=== PATIENT | female | born 1965 | race Caucasian/White ===

== ENCOUNTER 2019-10-25 10:23 | Observation (INO) | payer OTHER, BC, SELFPAY ==
[2019-10-25] VITALS (8 sets, daily range): BP systolic 143–170; BP diastolic 72–98; PULSE 75–105; RESP 17–20; TEMP 36.6–37.1; O2SAT 96–100
--- NOTE | 2019-10-25 10:35 | W.ED.GENAD ---
Discharge Plan Disposition Condition: Improving Discharge Details Chief Complaint: Trauma Admit Date/Time: 10/25/19 15:58 Admit Provider: Leodan Mao Attending Provider: Leodan Mao Primary Care Provider: Unknown,Unknown ED Provider: Loli Carlos Discharge Instructions Activity:: Activity as Tolerated Equipment/Supplies:: Walker Diet:: As Tolerated Discharge Orders Discharge Orders: Discharge Order (Routine); Ordered 10/27/19 Ordered By: Unique Alcazar Discharge Data Discharge Date/Time-TO BE ENTERED AT DEPARTURE: 10/25/19 16:37 Medical Decision Making Patient is a pleasant 54-year-old female presents today with chief complaint of back pain. She reports a prior to arrival, she slipped down some steps and landed directly onto her back striking her lumbar and thoracic spines going down approximately 4 steps. She denies striking her head, no loss of conscious. Denies any altered sensation. Has not noted any weakness but is having difficulty moving secondary to the severe pain in her back. Patient is anticoagulated on Xarelto she has history of DVTs and antiphospholipid antibody syndrome. Denies any pain in her extremities. No pain in the neck. On exam, patient appears very uncomfortable. Normal head and neck exam. Neurologic exam is intact. She is exquisitely tender over T6 of the thoracic spine. Also has had more mild discomfort diffusely over the lumbar spine. No pelvic instability or discomfort. No saddle paresthesias. Not have any incontinence. Plan to treat the patient's pain and obtain CT. As the patient is anticoagulated, I feel that chest, abdomen imaging is appropriate as well despite her normal exams. Lungs were clear no tenderness elicited with palpation over the abdomen. Contacted by radiologist. He is concerned about a number of low attenuation areas in the lumbar spine consistent with early myeloma. He is advising MRI of the spine. He does see what appears to be a anterior compression fracture at T7 but states that this is minimal, could account for her acute pain today. Also notes a large uterus with calcification consistent with calcified fibroids as well as concern for cervical mass. Patient was unaware of any of these findings. She reports that she is overdue for any Pap smear. States that she has not been noted to have an abnormality historically when undergoing an exploratory laparotomy for her of bowel obstruction. However, she underwent a subsequent ultrasound with fibroids noted otherwise without acute abnormality. I discussed treatment options with her. As the patient does live in [place], I am concerned regarding her pain management on the drive home do not feel that she can be able to tolerate this today. Patient will be given 4 mg of morphine in addition to the 100 mcg of fentanyl she is already received. We will also give oral acetaminophen. Patient is unable to take anti-inflammatories secondary to her anticoagulated state. Consulted with Dr. Palomo regarding the patients compression fracture. He recommended PCP f/u and pain management. Consulted with radiologist regarding the findings of the patient's MRI. He advised that the suspicious lesions are most consistent with small hemangiomas and not suggestive myeloma. Discussed findings with the patient. Patient continues to require IV narcotics for pain. She does live in [place] and only to be able to tolerate a car ride home and time of discharge. At this time, I do not believe the patient is able to tolerate this, she is still unable to perform minimal movements to even out of bed. Will discuss with the hospitalist. Consulted with the hospitalist who agrees to admission for pain control following traumatic fracture of T7. HPI General Mode of arrival: wheelchair. Date/Time Provider Initiated Documentation: 10/25/19 10:35. Limitations to Documentation: no limitations. Information obtained by: patient, family () and RN notes reviewed. HPI Narrative: Patient is a pleasant 54-year-old female presenting today with chief complaint of back pain. She reports a prior to arrival she was at a condo where she and friends are staying skiing, when she slipped down some of the stairs in a rate of the bathroom. Reports that she fell down approximately 4 stairs but landed directly on her mid back and since that time is been having severe pain. Patient had extreme difficulty getting out of the car and performing small activities since the time of the fall secondary to the severe pain. Past medical history pertinent for clotting disorder, patient is anticoagulated on Xarelto. She also has had multiple histories of bowel obstructions. Denies any bowel changes today. Patient denies striking her head, no loss of consciousness. Denies any fevers or chills. Denies any neck pain. Denies any pain in her limbs. Related Data Home Medications Medication Instructions Recorded Confirmed [id number] 1 cap PO DAILY 10/25/19 10/25/19 Xarelto 20 mg PO DAILY 10/25/19 10/25/19 cholecalciferol (vitamin D3) 2,000 unit PO DAILY 10/25/19 10/25/19 [Vitamin D3] magnesium 250 mg PO DAILY 10/25/19 10/25/19 acetaminophen [Mapap Extra 1,000 mg PO Q8H #0 tab 10/27/19 Strength] docusate sodium [Colace] 100 mg PO TID PRN PRN #0 cap 10/27/19 lidocaine [Lidoderm] 1 patch TOPICAL Q24H #15 each 10/27/19 oxycodone 10 mg PO Q6H PRN PRN #16 tab 10/27/19 Previous Rx's Medication Instructions Recorded acetaminophen [Mapap Extra 1,000 mg PO Q8H #0 tab 10/27/19 Strength] docusate sodium [Colace] 100 mg PO TID PRN PRN #0 cap 10/27/19 lidocaine [Lidoderm] 1 patch TOPICAL Q24H #15 each 10/27/19 oxycodone 10 mg PO Q6H PRN PRN #16 tab 10/27/19 Allergies Allergy/AdvReac Type Severity Reaction Status Date / Time adhesive tape AdvReac Unverified 10/25/19 10:51 General Stated Complaint: Trauma SOCORRO: 3 Review of Systems Constitutional Constitutional: Reports as per HPI, Denies chills, Denies fatigue, Denies fever(s), Denies headache(s) and Denies weakness Eyes Eyes: Reports as per HPI, Denies blurry vision, Denies change in vision and Denies loss of vision ENT Ears, Nose, Mouth, and Throat: Denies abnormal hearing and Denies headache(s) Cardiovascular Cardiovascular: Reports as per HPI, Denies chest pain and Denies dyspnea Respiratory Respiratory: Reports as per HPI, Denies cough, Denies pain on inspiration, Denies pain with cough and Denies dyspnea Gastrointestinal Gastrointestinal: Reports as per HPI, Denies abdominal pain, Denies nausea and Denies vomiting Genitourinary Genitourinary: Reports as per HPI and Denies urinary incontinence Musculoskeletal Musculoskeletal: Reports as per HPI, Reports abnormal gait (has had difficulty moving) and Reports back pain Integumentary/Breasts Skin/Breast: Reports as per HPI and Denies rash Neurologic Neurologic: Reports as per HPI, Denies abnormal hearing, Denies abnormal movements, Denies abnormal speech, Reports abnormal gait (has had difficulty moving), Denies headache(s), Denies lack of coordination, Denies focal weakness, Denies loss of vision, Denies seizure-like activity, Denies paresthesias and Denies weakness Endocrine Endocrine: Denies fatigue [facility] Medical History Antiphospholipid antibody syndrome (Chronic) History of DVT (deep vein thrombosis) (Resolved) Small bowel obstruction due to adhesions (Resolved) Uterine fibroid (Acute) Surgical History H/O section (Chronic) Social History Smoking/Tobacco Use Status: Former Tobacco Use Alcohol Intake: current Alcohol Intake frequency: holidays/special occasions only Drug use: Never Substance use type: does not use Do you feel safe at home: Yes Do you feel safe in your relationship?: Yes Exam Const General: cooperative, healthy appearing, comfortable, no acute distress, well developed and well groomed Nutritional Appearance: average body habitus and well nourished Orientation: alert, awake and oriented x3 HENMT Head: normal to inspection, no palpable skull fracture, normocephalic and atraumatic Ears: hearing grossly normal bilaterally, external ears normal and TM's normal bilaterally General nose exam: external nose normal Mouth: oral mucosae normal, lip normal and tongue normal Throat: posterior oropharynx normal Eyes General: appearance normal, both eyes and all related structures Visual Perea: normal visual perea by confrontation Alignment and Position: alignment normal Periorbital: periorbital findings normal Eyelids: eyelids normal Conjunctivae: conjunctivae normal Pupils: PERRL EOM: EOM intact bilaterally Neck Neck: normal visual inspection, full ROM, no lymphadenopathy, no meningeal signs, trachea midline and supple Chest Chest: normal inspection of the chest, normal palpation of entire chest wall, no crepitus and no localized rib tenderness Resp Effort & Inspection: normal respiratory effort, able to speak in complete sentences and no respiratory distress Auscultation: clear to auscultation bilaterally, no rales, no rhonchi and no wheezes Cardio Rate: regular rate Rhythm: regular rhythm Heart Sounds: S1 normal and S2 normal GI Inspection: normal to inspection, no abdominal wall ecchymosis, no edema and non-distended Palpation: soft, no hepatosplenomegaly, not firm, no guarding, no pulsatile masses, not rigid and nontender Auscultation: normal bowel sounds Back/Spine/Pelvis Back: no CVA tenderness Cervical Spine: normal cervical lordosis and cervical ROM normal Thoracic/Lumbar Spine: thoracic and lumbar spine normal to inspection, thoraco-lumbar ROM normal, thoraco-lumbar ROM limited, No thoraco-lumbar spasm, thoracic spinal tenderness (Pain at T6) and lumbar spinal tenderness (no focal tenderness) Pelvis: no pain with anterior-posterior compression and no pain with lateral compression Sacroiliac joints: bilaterally nontender Sacrum: no ecchymosis and no tenderness Skin General skin exam: no rashes or lesions noted Lesions: no lesions Rashes: no rashes Trauma: no lacerations or abrasions Wounds: no wounds Neuro General: alert, awake, oriented x3, gait normal, tone normal and moves all extremities Cranial Nerves: CN's II-XI intact bilaterally Cognition: normal cognition Speech: speech normal Gait: gait abnormal (patient is having severe pain, has very minimal movement) Motor: muscle tone normal throughout and strength 5/5 throughout Sensory Exam: no sensory deficits noted (no saddle paresthesias) Extrem General: normal to inspection, full ROM, normal capillary refill, no pedal edema and no calf tenderness Psych Appearance: grossly normal and well kempt Mental Status: mental status grossly normal Speech and Movement: speech and movement normal Course Vital Signs Vital signs: Vital Signs Temperature 36.6 C 10/25/19 10:30 Pulse 89 10/25/19 10:30 Respiratory Rate 20 10/25/19 10:30 Blood Pressure 170/98 H 10/25/19 10:30 Pulse Oximetry 100 10/25/19 10:30 Temperature 36.6 C 10/25/19 10:30 Temperature Source Temporal Artery Scan 10/25/19 10:30 Pulse 89 10/25/19 10:30 Respiratory Rate 20 10/25/19 10:30 Blood Pressure 170/98 H 10/25/19 10:30 Blood Pressure Position Sitting 10/25/19 10:30 Pulse Oximetry 100 10/25/19 10:30 Oxygen Delivery Method Room Air 10/25/19 10:30 Oxygen Flow Rate 0 10/25/19 10:30 Pain Level 10 10/25/19 10:30
[2019-10-25] MEDS: fentaNYL 100 MCG/2 ML VIAL 50 MCG IVP ×2 (10:49→11:01)
[2019-10-25] MEDS: Normal Saline Flush 10 ML SYR IVP (10:51)
--- NOTE | 2019-10-25 11:12 | DI.CT_ITS ---
EXAM: CT CHEST/ABD/PEL W AND CT THORACIC AND LUMBAR RECONS CLINICAL HISTORY: fall, anticoagulated TECHNIQUE: CT examination of the chest, abdomen and pelvis was performed with a bolus infusion of 10 0 cc of Omnipaque 350. Thoracic and lumbar spine reconstructions were obtained from the raw data set. COMPARISON: No exams were available for comparison FINDINGS: There is minimal anterior vertebral body compression fracture and superior endplate fracture of T7. No involvement of the posterior elements. This reportedly corresponds to the patient's area of sympt omatology. Note is also made of questionable poorly defined areas of decreased attenuation in multiple lumbar ve rtebral bodies, no definite lytic lesion seen but possibility of early lytic lesions is not excluded and correlation with MR of the lumbar and thoracic spine is suggested including post contrast imaging to rule out multifocal process such as multiple myeloma. The lungs are clear. The thoracic aorta and major branches appear intact. No evidence of pulmonary embolic disease. No mediastinal or hilar adenopathy. Tracheobronchial tree appears intact. No pleu ral effusion or pneumothorax. No soft tissue hematoma. Liver, spleen and pancreas appear normal. Gallbladder and bile ducts are CT normal. Adrenals and ki dneys appear normal. Abdominal aorta and major branches appear normal. No intra-abdominal hematoma or free air. Small fa t containing umbilical hernia noted. No abdominal or pelvic adenopathy. Appendix is normal. No evidence of bowel injury, diverticulitis or bowel obstruction. Uterus appear s mildly enlarged with some myometrial calcifications and heterogeneous appearance of the uterus cons istent with multiple fibroids. No gross adnexal mass. There is prominence of the endometrial stripe which is abnormal in this age group, question cervical enlargement noted as well. Pelvic ultrasound requested for correlation to evaluate the cervix to exc lude cervical mass lesion and to evaluate the endometrial stripe. IMPRESSION: Mild anterior T7 vertebral body/superior endplate fracture. Questionable areas of decreased attenuation particularly in lumbar spine raising the possibility of l ytic lesions. Thoracic and lumbar spine MRI including post contrast imaging suggested to rule out mu ltifocal disease including multiple myeloma. Probable endometrial stripe thickening in a postmenopausal patient. Presumed uterine fibroids, cervi elkin enlargement noted. Pelvic ultrasound suggested for correlation.
[2019-10-25 11:15] LABS: Abs Immature Grans 0.02 k/cumm (0.0-0.09); Absolute Basophil Count 0.02 k/cumm (0.0-0.2); Absolute Eosinophil Count 0.05 k/cumm (0.0-0.7); Absolute Lymphocyte Count 0.63 k/cumm (1.2-3.4); Absolute Neutrophil Count 4.76 k/cumm (1.2-6.7); Basophils % 0.3; Eosinophils % 0.9; HCT 39.3 % (36.0-46.0); HGB 13.9 g/dL (12.0-15.5); Immature Grans % 0.3; Lymphocytes % 10.7; Mean Corp. HGB Concentration 35.4 g/dL (32.0-36.0); Mean Corpuscular Hemoglobin 32.5 pg (27.0-33.0); Mean Corpuscular Volume 91.8 fL (80-95); Mean Platelet Volume 8.4 fL (8.0-11.0); Monocytes % 6.8; Platelet Count 201 x1000/uL (130-400); RBC 4.28 m/cumm (4.00-5.20); RBC Distribution Width 11.9 % (11.7-14.6); White Blood Cell Count 5.88 k/cumm (4.4-10.8)
[2019-10-25 11:27] LABS: INR 1.2 (0.9-1.1); PTT Activated 40.5 sec (21.0-31.4); Prothrombin Time 11.9 sec (9.3-11.0)
[2019-10-25] MEDS: Omnipaque 350 MG/ML 100 ML BTL IJ (11:30)
[2019-10-25 11:35] LABS: ALT 71 U/L (14-59); AST 51 U/L (15-37); Albumin 4.2 g/dL (3.4-5.0); Alkaline Phosphatase 82 U/L (46-116); Anion Gap 16.3 mmol/L (3-11); BUN 10 mg/dL (7-18); Bilirubin, Total 0.8 mg/dL (0.2-1.0); CO2 21.7 mmol/L (21.0-32.0); CREATININE 0.59 mg/dL (0.55-1.02); Calcium 9.4 mg/dL (8.5-10.1); Chloride 99 mmol/L (98-107); Glucose 109 mg/dL (74-106); Sodium 137 mmol/L (136-145)
[2019-10-25] MEDS: Acetaminophen 500 MG TAB 1000 MG PO ×2 (12:16→19:28)
[2019-10-25] MEDS: LORazepam 2 MG/ML VIAL 1 MG IVP (13:00)
--- NOTE | 2019-10-25 13:20 | DI.MRI_ITS ---
EXAM: MR THORACIC SPINE WO/W CLINICAL HISTORY: concern for lytic lesions. TECHNIQUE: Multiplanar multisequence MRI was performed. COMPARISON: MR LUMBAR SPINE WO/W from 10/25/2019 FINDINGS: MR examination of thoracic spine was performed utilizing multiplanar imaging including pre and post c ontrast T1 fat sat imaging. Spinal cord shows normal signal. No bony spinal canal abnormality. Sean ral foramina appear intact as visualized. Mildly increased signal noted on stir images of the superi or endplate of T7 vertebral body consistent with the minimal acute compression fracture identified by CT. No associated cord injury. No additional fracture seen. No enhancing lesion. No space-occupy ing lesion and nothing to suggest the presence of multiple myeloma. Impressions section superior end plate compression fracture of T7. No additional findings. No marrow lesion identified. Scanning of the lumbar spine was performed according to the usual protocol with additional post contr ast T1 weighted fat sat imaging. There are multiple small high-signal foci seen on precontrast T1 an d T2 weighted images consistent with multiple vertebral fatty rests or hemangiomas. Minimal Alva dis elkin signal changes seen at its anterior superior endplate of L3 with minimal enhancement, the finding s are also associated with mildly abnormal signal of inferior anterior endplate of L2 and the finding s are consistent with disc degeneration. No other enhancing lesion identified in the lumbar region. No bony central canal spinal stenosis, neural foraminal stenosis, or disc herniation. Neural forami na appear well maintained throughout. Normal appearance of the conus medullaris. IMPRESSION: Minimal superior endplate/anterior compression of L7 vertebral body No other significant findings in the thoracic spine Multiple small fatty rests and/or vertebral hemangiomas of the lumbar spine which probably correspond with multiple areas of low attenuation seen on CT. No specific evidence of multiple myeloma or othe r space-occupying lesion. Findings consistent with disc degeneration with endplate changes at L2-3. No lumbar disc herniation, central canal spinal stenosis, or neural foraminal stenosis.
--- NOTE | 2019-10-25 14:10 | NUR.NOTE ---
Pt to MRI at 1305 Nursing Note:
[2019-10-25] MEDS: Gadoterate meglumine 20 ML VIAL 10 ML IVP (14:24)
--- NOTE | 2019-10-25 15:10 | NUR.NOTE ---
Pt returned from MRI, vital signs updated, see flow sheet, pt requests pain meds, advised. Nursing Note:
[2019-10-25] MEDS: oxyCODONE 5 MG TAB PO (15:33)
--- NOTE | 2019-10-25 16:06 | HPE_ITS ---
Date of service: 10/25/19 Time of Service: 16:36 Assessment and Plan Assessment and plan (1) Compression fracture of T7 vertebra: Status: Acute Assessment and plan: Noted on CT and MRI. Continue pain control with scheduled APAP, PRN IV morphine and oral oxycodone, as well as heat and muscle relaxer as needed. PT consulted. (2) Antiphospholipid antibody syndrome: Status: Chronic Assessment and plan: Continue Xarelto. She is followed by hematology at [facility], follow up as scheduled. (3) Uterine fibroid: Status: Acute Assessment and plan: Noted on CT, as well as probable endometrial stripe thickening in a postmenopausal patient and cervical enlargement. She will need follow up pelvic ultrasound and [facility] as an outpatient. (4) Vertebral body hemangioma: Status: Acute Assessment and plan: Noted on MRI, with initial concern for lytic lesions on CT scan, however, MRI most consistent with Multiple small fatty rests and/or vertebral hemangiomas of the lumbar spine, No specific evidence of multiple myeloma or other space-occupying lesion. (5) DVT prophylaxis: Status: Acute Assessment and plan: Continue Xarelto. TEDs and SCDs for mechanical DVT ppx. (6) Discharge planning issues: Status: Acute Assessment and plan: She is a full code. Continue pain control and PT consult. For discharge when her pain is under control. PT consulted. She will need follow up with [facility] in [place]. This case was discussed with Dr. Mao who is in agreement. History of Present Illness History of Present Illness Chief Complaint: Back pain Narrative: Nakia Anton is a 54 year old female with a past medical history significant for DVTs and antiphospholipid antibody syndrome for which she is on Xarelto, also w ith a history of 3 c-sections and subsequent bowel obstructions related to adhesions, who presented to the ED today after sustaining a mechanical fall down the stairs. She has been staying at [facility] with friends for a ski trip. She reports that she was in her usual state of health prior to the fall and did not experience any dizziness, lightheadedness or palpitations prior. In the ED, a CT chest/abd/pelvis was notable for a mild anterior T7 fracture. Also with concern for lytic lesions of lumbar spine, MRI was recommended. CT also notable for probable endometrial stripe thickening, presumed uterine fibroids, cervical enlargement noted, Pelvic ultrasound recommended. She went on to have MRI thoracic and lumbar spine which again noted T7 compression fracture, previously noted areas of low attenuation on CT were most consistent with vertebral hemangiomas. She was given IV morphine and PO oxycodone and admitted for pain control. At the time of her admission, she reports that the pain is tolerable if she does not move. The pain is severe with any activity. She denies any other concerns such as shortness of breath, coughing, wheezing, chest pain/pressure, palpitations, nausea or vomiting. She denies any recent change to her bowels, her bladder is functioning normally. She is interested in getting her pain under control so she can get back to [place] where she lives. Review of Systems All systems reviewed & are unremarkable except as noted in HPI and below PFS Medical History (Updated 10/25/19 @ 17:10 by Unique Alcazar NP) Antiphospholipid antibody syndrome (Chronic) History of DVT (deep vein thrombosis) (Resolved) Small bowel obstruction due to adhesions (Resolved) Uterine fibroid (Acute) Surgical History (Updated 10/25/19 @ 17:01 by Unique Alcazar NP) H/O section (Chronic) Social History Smoking/Tobacco Use Status: Former Tobacco Use Alcohol Intake: current Alcohol Intake frequency: holidays/special occasions only Drug use: Never Substance use type: does not use Do you feel safe at home: Yes Do you feel safe in your relationship?: Yes Meds Home Medications and Allergies Home Medications Medication Instructions Recorded Confirmed Type [id number] 1 cap PO DAILY 10/25/19 10/25/19 History cholecalciferol (vitamin D3) 2,000 unit PO DAILY 10/25/19 10/25/19 History [Vitamin D3] magnesium 250 mg PO DAILY 10/25/19 10/25/19 History rivaroxaban [Xarelto] 20 mg PO DAILY 10/25/19 10/25/19 History Allergies Allergy/AdvReac Type Severity Reaction Status Date / Time adhesive tape AdvReac Unverified 10/25/19 10:51 Exam Narrative Exam Narrative: General: 54 year old female, appears stated age, alert and oriented. Appears uncomfortable with repositioning in bed. HEENT: normocephalic, atraumatic, pupils equal and round, EOMI, mucous membranes moist. Neck: supple, no JVD. Cardiovascular: heart has regular rate and rhythm. Soft systolic murmur noted at LSB. Nontachycardic. Respiratory: respirations even and unlabored, lung sounds clear on anterior and lateral exam. GI: abdomen soft, nontender on palpation, normoactive bowel sounds, nondistended. Extremities: no clubbing, cyanosis or edema. No calf swelling or tenderness. Back: not repositioned for palpation due to discomfort with movement. Results Labs Result diagrams: 10/25/19 11:05 10/25/19 11:05 Labs: Laboratory Results - last 24 hr 10/25/19 10/25/19 10/25/19 11:05 11:05 11:05 WBC 5.88 RBC 4.28 Hgb 13.9 Hct 39.3 MCV 91.8 MCH 32.5 MCHC 35.4 RDW 11.9 Plt Count 201 MPV 8.4 Immature Gran % 0.3 Neutrophils % 81.0 Lymphocytes % 10.7 Monocytes % 6.8 Eosinophils % 0.9 Basophils % 0.3 Absolute Neutrophils 4.76 Absolute Lymphocytes 0.63 L Absolute Monocytes 0.40 Absolute Eosinophils 0.05 Absolute Basophils 0.02 PT 11.9 H INR 1.2 H APTT 40.5 H Sodium 137 Potassium 4.0 Chloride 99 Carbon Dioxide 21.7 Anion Gap 16.3 H BUN 10 Creatinine 0.59 Estimated GFR/1.73 m2 >= 60.00 Glucose 109 H Calcium 9.4 Total Bilirubin 0.8 AST 51 H ALT 71 H Alkaline Phosphatase 82 Total Protein 8.0 Albumin 4.2 Last Vital Signs Temp 36.8 C 10/25/19 15:09 Pulse 105 H 10/25/19 15:09 Resp 18 10/25/19 15:09 BP 143/80 H 10/25/19 15:09 Pulse Ox 96 10/25/19 15:09
[2019-10-25] MEDS: MORPHine 2 MG/ML SYR IVP (16:52)
[2019-10-25] MEDS: Normal Saline Flush 10 ML SYR (16:53)
[2019-10-26] MEDS: MORPHine 2 MG/ML SYR IVP ×2 (00:36→14:59)
[2019-10-26 00:39] VITALS: BP 150/88; PULSE 76; RESP 18; TEMP 36.7; O2SAT 97
[2019-10-26] MEDS: Acetaminophen 500 MG TAB 1000 MG PO ×3 (04:58→20:23)
[2019-10-26] MEDS: oxyCODONE 5 MG TAB PO ×2 (06:32→12:42)
[2019-10-26 07:40] LABS: ALT 49 U/L (14-59); AST 20 U/L (15-37); Albumin 3.5 g/dL (3.4-5.0); Alkaline Phosphatase 72 U/L (46-116); Anion Gap 11.2 mmol/L (3-11); BUN 7 mg/dL (7-18); Bilirubin, Total 0.9 mg/dL (0.2-1.0); CO2 25.8 mmol/L (21.0-32.0); CREATININE 0.67 mg/dL (0.55-1.02); Calcium 8.7 mg/dL (8.5-10.1); Chloride 102 mmol/L (98-107); Glucose 85 mg/dL (74-106); Potassium 3.9 mmol/L (3.5-5.1); Sodium 139 mmol/L (136-145); Total Protein 6.9 g/dL (6.4-8.2)
[2019-10-26 07:43] LABS: INR 1.2 (0.9-1.1); Prothrombin Time 12.1 sec (9.3-11.0)
[2019-10-26] MEDS: Magnesium Gluconate 500 MG TAB 250 MG PO (07:45)
[2019-10-26] MEDS: Rivaroxaban 10 MG TABLET 20 MG PO (07:46)
[2019-10-26 08:46] VITALS: BP 137/84; PULSE 68; RESP 18; TEMP 36.5; O2SAT 96
--- NOTE | 2019-10-26 10:57 | PT.INIE ---
Date of service: 10/26/19 Time of Service: 10:00 PT Notes Visit Reasons: T7 COMPRESSIONFX, SP FALL Inpatient Physical Therapy Evaluation Date: 10/26/19 Referring Doctor: Unique Alcazar PT Orders: PT CONSULT: Non-urgent, compression fx T7, S/P fall Precautions: Standard Patient Profile/Admitting Diagnosis: Patient fell down a flight of stairs morning of 10/25/19, sustaining T7 compression fracture. Admitted for pain management, until she is able tolerate travel home to [place]. PMHX: Medical History (Updated 10/25/19 @ 17:10 by Unique Alcazar NP) Antiphospholipid antibody syndrome (Chronic) History of DVT (deep vein thrombosis) (Resolved) Small bowel obstruction due to adhesions (Resolved) Uterine fibroid (Acute) Surgical History (Updated 10/25/19 @ 17:01 by Unique Alcazar NP) H/O section (Chronic) Social History/Home Situation: Resides in [place], works for an [employer]. She is with 3 supportive college aged children. She lives in a split level ranch home, 5 stairs to enter home, 5 stairs then to get to the main level, and a flight of stairs to get to the second level master bedroom and bathroom. She does have a bathroom on the main floor, and could arrange sleeping quarters on the main level if needed. She has a bed that has mechanical head elevation if needed in master. Current Functional Limitations: Requires walker for ambulation, and CG for transfers. Poor tolerance to sitting. I with toileting. Very slow overall do to pain level. Equipment Owned/DME: None Subjective: C/o pain at sacrum, she feels she may landed on her tailbone area first when falling. She has to be able to tolerate a 3 hour car ride home to [place], of which she normally has to stop and get and walk around a few times do to her blood clotting syndrome. Her upper back pain is of lesser degree. She feels she will be able to recline her seat or lie almost flat in her jeep, there is a grab bar which will assist her getting in and out. Her is traveling with her Objective: General Observation: Pain dominant, facial grimacing with all transfers. Reduced pain with standing position. Dependent on walker to alleviate some of her back pain. She is found reclined in bed with a pillow under sacrum or comfort, and LE compression boots Mental Status: A&Ox3 Pain: 5-6/10 with initial stand and passive recline in bed, increasing to 8/10 after stair ambulation. Pain subsides to 6/10 with general ambulation following stairs. Vital Signs: BP 155/79, HR 69, O2 Sat 96% room air ROM: Right Upper Extremity: WNL Left Upper Extremity: WNL Right Lower Extremity: Grossly WNL, but deferred assessment of full hip flexion and rotation due to pain induced on sacrum Left Lower Extremity: Grossly WNL, but deferred assessment of full hip flexion and rotation due to pain induced on sacrum Strength: Upper Extremities: At least 3/5, deferred resistance due to pain dominant condition and to avoid strain to thoracic region. Lower Extremities: At least 3/5, deferred resistance due to pain dominant condition and to avoid strain to thoracic region and sacrum region. Demonstrates ability to perform mini bridge when adjusting in bed. Sensation: Intact Bed Mobility/Transfers: CG with bed mobility, transfers on/off EOB and toilet, RW throughout. Gait: 200 ft, RW, SBA. 4 steps x 2 up and down, 6 steps x 2 up and down. Gait is very slow, do to pain. Balance: Generally fair due to pain level and poor tolerance to quick movement, secondary to spinal pain. Special Tests: Mobility Limitations Standardized Measure [facility] 6 clicks Basic Mobility Inpatient Short Form: 46% disability Informed Consent/Education: Patient instructed in purpose of PT consult and plan of care. Assessment: Patient is a 54 year old female referred to physical therapy services with the diagnosis of S/P fall on 10/25/19, reuslting in T& fracture. Patient presents with clinical signs and symptoms consistent with T7 fracture, and sacrum contusion, as demonstrated by the following impairment level findings: Limited LE mobility, generalized weakness, poor balance, gait antalgia and motor control and movement dysfunction. Impairments are contributing to the following functional limitations: Poor tolerance to and difficulty with bed mobility, transfers, dependent on walker for ambulation, very slow movement compared to her baseline and [facility] score or 46% disability. She requires skilled PT intervention to attend to above impairments and functional limitations. She is pain dominant due to acute injury, and at this point generous time is needed to allow for pain management, and improved tolerance to functional tasks. She will require a walker to allow for safe functional ambulations, and toilet riser to allow for pain reduction and safer toilet transfers. She is appropriate to travel home, when patient feels her pain is under satisfactory control, and she will be able to tolerate the travel. [place] 25110 History: See comorbidities Examination: See above impairments and functional limitations Presentation: Stable Decision Making: Easy Goals: Goals X1 week 1. Supine-Sit I, pain level 5/10 2. Sit-Supine I, pain level 5/10 3. Sit-Stand I, pain level 5/10 4. Stand-Sit I, pain level 5/10 5. Bed-Chair I, pain level 5/10 6. Chair-Bed I, pain level 5/10 7. Gait FWW, distant supervision 100 ft. Stairs distant supervision 6 x 5, with rail Plan of Care/Treatment Plan: 1-2x/day, x 2-3 days Plan of care has been reviewed with the WHEEL FILLER providing the service under Physical Therapy direction. Initiate Physical Therapy intervention for strengthening, bed mobility, transfers, gait, stairs, balance training, use of assistive device. DISCHARGE RECOMMENDATIONS: Home with , when pain is manageable to tolerate travel home. Expect by tomorrow she will be able to tolerate travel. AD recommendations as above. TREATMENT CODE/TIME: 32701, 37629, 60 min.
--- NOTE | 2019-10-26 13:23 | PHARADMIT ---
Admission Pharmacy Clinical Review T-7 compresion fracture. sp fall Code Status Full Code Current Weight Wgt-56.8 kg Renally Cleared and Narrow Therapeutic Index Meds CrCl~ 70.4mL/min Meds-OK QTc Value / Action Taken NA BP Control, Fever BP-137/64 Tmax- 37.0C Electrolytes reviewed Na-139 K+3.9 DVT Prophylaxis Xarelto Opiate Usage / Scheduled Bowel Regimen Ordered Yes Yes Plt/SCr for Heparin / Enoxaparin Plts-201 SCr-0.67 INR for Warfarin inr-1.2 H/H stable, WBC/Bands H&H- 13.9/39.3 WBC-5.88 Antibiotic appropriateness none Cultures and Sensitivities none Surgical ABX d/c within 24 hr na DM control / Insulin Dosing BG-85 Heart Failure (Check EF%) (JUAN's, B-Block, Diuretics) None IV to PO Switch No Home Meds Reviewed Yes Home Meds Not Ordered ViT-D, Hematinic Herb Vit Comments
--- NOTE | 2019-10-26 14:01 | PGE_ITS ---
Date of Service Date of service: 10/26/19 Time of Service: 08:01 Assessment and Plan Assessment and plan (1) Compression fracture of T7 vertebra: Status: Acute Assessment and plan: Still very uncomfortable with position change. Initial nausea with oral oxycodone does not seem to have occurred on repeat dosing but pain control at current dose seems an adequate. Too uncomfortable to try to make the trip home. I am increasing the oxycodone dose. We will continue to have IV morphine available if needed. Continue efforts with PT. Monitor for constipation or other adverse effects of opiates. Hopefully tomorrow pain control will be sufficient to allow her to drive the 3+ hours back to her home in [place]. (2) Antiphospholipid antibody syndrome: Status: Chronic Assessment and plan: Informs me that she was a failure of warfarin, was on Lovenox for years, transition to Xarelto because of extensive subcutaneous bleeding from Lovenox. Has not had thrombotic or bleeding complications on her current meds. (3) Thickened endometrium: Status: Acute Assessment and plan: Incidental finding on her CT scan done in her ER evaluation. Discussed with her the need for follow-up of this abnormality of unknown significance when she gets back home. Subjective Subjective Interval history since last seen: Less pain at rest but still very uncomfortable with attempts at getting up. She did walk with physical therapy very slowly and cautiously, using a walker with much of her weight being born by her arms. No constipation. A little nausea after first dose of oxycodone but with the second dose did not have nausea. Not sure if the 5 mg dose is sufficient. Informed of the incidental finding of thickened endometrial stripe and cervix on CT scan that needs follow-up. Informs me that she failed warfarin and had extensive subcutaneous bruising with Lovenox after years of use hence transition to Xarelto. She has not had thrombotic or bleeding complications with this medication. Exam Narrative Exam Narrative: Comfortable if she does not move, uncomfortable with attempts at sitting up. Afebrile. Blood pressure 137/84. SaO2 96% on room air. She is able to walk with walker but holds a lot of her weight with her arms. Symmetric movement, slowly, both lower extremities. Objective Objective Clinical Data: Abnormal lab results 10/26/19 10/26/19 Range/Units 06:25 06:25 PT 12.1 H (9.3-11.0) sec INR 1.2 H (0.9-1.1) Anion Gap 11.2 H (3-11) mmol/L Vital Signs Temperature 36.5 C 10/26/19 08:46 Temperature Source Temporal Artery Scan 10/26/19 08:46 Pulse 68 10/26/19 08:46 Pulse Rhythm Regular 10/26/19 07:30 Respiratory Rate 18 10/26/19 08:46 Respiratory Effort Non-Labored 10/26/19 07:30 Respiratory Depth Normal 10/26/19 07:30 Respiratory Pattern Normal 10/26/19 07:30 Blood Pressure 137/84 10/26/19 08:46 Blood Pressure Position Sitting 10/25/19 10:30 Pulse Oximetry 96 10/26/19 08:46 Oxygen Delivery Method Room Air 10/26/19 08:46 Oxygen Flow Rate 0 10/26/19 08:46 Pain Level 5 10/26/19 12:43 Intake & Output 10/25/19 10/26/19 10/26/19 23:59 11:59 23:59 Intake Total 500 / 510 240 / 240 Output Total 900 / 900 1000 / 1000 Balance -400 / -390 -1000 / -760 240 / -760 Weight 54.431 kg 56.8 kg Intake: Oral 500 / 500 240 / 240 Output: Urine 900 / 900 1000 / 1000 Other: Urine Color Yellow Yellow Urine Appearance Clear Clear Urine Odor None Voiding Methods Toilet Toilet Laboratory Results WBC 5.88 k/cumm (4.4-10.8) 10/25/19 11:05 RBC 4.28 m/cumm (4.00-5.20) 10/25/19 11:05 Hgb 13.9 g/dL (12.0-15.5) 10/25/19 11:05 Hct 39.3 % (36.0-46.0) 10/25/19 11:05 MCV 91.8 fL (80-95) 10/25/19 11:05 MCH 32.5 pg (27.0-33.0) 10/25/19 11:05 MCHC 35.4 g/dL (32.0-36.0) 10/25/19 11:05 RDW 11.9 % (11.7-14.6) 10/25/19 11:05 Plt Count 201 x1000/uL (130-400) 10/25/19 11:05 MPV 8.4 fL (8.0-11.0) 10/25/19 11:05 Immature Gran % 0.3 10/25/19 11:05 Neutrophils % 81.0 10/25/19 11:05 Lymphocytes % 10.7 10/25/19 11:05 Monocytes % 6.8 10/25/19 11:05 Eosinophils % 0.9 10/25/19 11:05 Basophils % 0.3 10/25/19 11:05 Absolute Neutrophils 4.76 k/cumm (1.2-6.7) 10/25/19 11:05 Absolute Lymphocytes 0.63 k/cumm (1.2-3.4) L 10/25/19 11:05 Absolute Monocytes 0.40 k/cumm (0.11-0.7) 10/25/19 11:05 Absolute Eosinophils 0.05 k/cumm (0.0-0.7) 10/25/19 11:05 Absolute Basophils 0.02 k/cumm (0.0-0.2) 10/25/19 11:05 PT 12.1 sec (9.3-11.0) H 10/26/19 06:25 INR 1.2 (0.9-1.1) H 10/26/19 06:25 APTT 40.5 sec (21.0-31.4) H 10/25/19 11:05 Sodium 139 mmol/L (136-145) 10/26/19 06:25 Potassium 3.9 mmol/L (3.5-5.1) 10/26/19 06:25 Chloride 102 mmol/L (98-107) 10/26/19 06:25 Carbon Dioxide 25.8 mmol/L (21.0-32.0) 10/26/19 06:25 Anion Gap 11.2 mmol/L (3-11) H 10/26/19 06:25 BUN 7 mg/dL (7-18) 10/26/19 06:25 Creatinine 0.67 mg/dL (0.55-1.02) 10/26/19 06:25 Estimated GFR/1.73 m2 >= 60.00 (mL/min/1.73m2) 10/26/19 06:25 Glucose 85 mg/dL (74-106) 10/26/19 06:25 Calcium 8.7 mg/dL (8.5-10.1) 10/26/19 06:25 Total Bilirubin 0.9 mg/dL (0.2-1.0) 10/26/19 06:25 AST 20 U/L (15-37) 10/26/19 06:25 ALT 49 U/L (14-59) 10/26/19 06:25 Alkaline Phosphatase 72 U/L (46-116) 10/26/19 06:25 Total Protein 6.9 g/dL (6.4-8.2) 10/26/19 06:25 Albumin 3.5 g/dL (3.4-5.0) 10/26/19 06:25
--- NOTE | 2019-10-26 14:12 | PDOC.CMIN ---
Care Management Initial Assess REASON FOR HOSPITALIZATION:: T7 Compression Fracture, s/p fall PAST MEDICAL HISTORY/PAST SURGICAL HISTORY:: Antiphospholipid antibody syndrome, DVT, SBO due to adhesions, uterine fibroid, section, new incidental finding of thickened endometrium. PREVIOUS FUNCTIONAL STATUS/SOCIAL/FAMILY SUPPORTS:: Nakia resides in [place], [place] with her , Rob. She is independent at baseline and was staying in the area for vacation and fell outside of her condo prior to presenting to the ER. She is independent with ADLs at baseline. CURRENT FUNCTIONAL STATUS:: Nakia is having increased pain with movement and therefore, currently limited in mobility. She is pleasant in interaction and forthcoming with information. Has patient been provided with information about the portal?: No Did the patient sign up for the portal?: No CODE STATUS:: Full Code INSURANCE COVERAGE / FINANCIAL ISSUES:: BC/BS Other CURRENT HOME/COMMUNITY SERVICES/EQUIPMENT:: No current services/equipment. PRIMARY CARE PHYSICIAN:: No Local. POTENTIAL DISCHARGE NEEDS:: Toleration of transfers and transport return to [place]. PATIENT/FAMILY EDUCATION NEEDS:: Review of instructions, discuss [employer]. ANTICIPATED BARRIERS TO DISCHARGE:: Increased pain with mobility. TRANSPORTATION:: Via private vehicle with her . PLAN:: Nakia will continue to be closely monitored and managed for pain. She will continue working with PT, anticipate she will be discharge ready when able to tolerate ambulation and transfers as well as sitting for the few hours she has to transport home to [place].
[2019-10-26 15:13] VITALS: BP 129/73; PULSE 67; RESP 18; TEMP 37.1; O2SAT 96
[2019-10-26] MEDS: oxyCODONE 10 MG TAB PO ×2 (17:49→23:30)
[2019-10-26 23:45] VITALS: BP 124/73; PULSE 79; RESP 17; TEMP 37; O2SAT 100
[2019-10-27] MEDS: Acetaminophen 500 MG TAB 1000 MG PO ×2 (04:18→12:16)
[2019-10-27 07:20] VITALS: BP 149/70; PULSE 71; RESP 20; TEMP 37.1; O2SAT 98
[2019-10-27] MEDS: Magnesium Gluconate 500 MG TAB 250 MG PO (08:16)
[2019-10-27] MEDS: Rivaroxaban 10 MG TABLET 20 MG PO (08:17)
[2019-10-27] MEDS: oxyCODONE 10 MG TAB PO ×2 (08:17→12:17)
[2019-10-27 09:30] VITALS: O2SAT 98
--- NOTE | 2019-10-27 11:53 | W.PM.DS.N ---
Date of service: 10/27/19 Time of Service: 11:54 DS: Diagnosis Discharge Diagnosis (1) Compression fracture of T7 vertebra: Status: Acute (2) Antiphospholipid antibody syndrome: Status: Chronic (3) Thickened endometrium: Status: Acute Discharge Plan Disposition Patient Disposition: HOME Condition: Improving Discharge Details Chief Complaint: Trauma Reason For Visit: T7 COMPRESSIONFX, SP FALL Admit Date/Time: 10/25/19 15:58 Admit Provider: Leodan Mao Attending Provider: Leodan Mao Primary Care Provider: Unknown,Unknown ED Provider: Loli Carlos Hospital Course Hospital Course: Nakia Anton is a very pleasant 54 year old female with a past medical history significant for DVTs and antiphospholipid antibody syndrome for which she is on Xarelto (after failing coumadin), also with a history of 3 c-sections and subsequent bowel obstructions related to adhesions, who presented to the ED on 10/25/19 after sustaining a mechanical fall down the stairs. She is from [place] and has been visiting the area with friends. She reported that she was in her usual state of health prior to the fall and did not experience any dizziness, lightheadedness or palpitations prior. In the ED, a CT chest/abd/pelvis was notable for a mild anterior T7 fracture. Also with concern for lytic lesions of lumbar spine, MRI was recommended. CT also notable for probable endometrial stripe thickening, presumed uterine fibroids, and cervical enlargement, a pelvic ultrasound was recommended. She went on to have MRI thoracic and lumbar spine which again noted T7 compression fracture, previously noted areas of low attenuation on CT were most consistent with vertebral hemangiomas. She was given IV morphine and PO oxycodone and admitted for pain control. She worked with PT. Her pain was eventually controlled with Oxycodone 10 mg orally with scheduled tylenol. A lidoderm patch was added for her 3+ hour ride home to [place]. PT recommended a walker. She was advised to take stool softeners to avoid constipation/bowel obstruction. She is discharged home with a prescription for oxycodone, lidoderm patches and a follow up appointment with her PCP in 5 days. She will discuss the incidental findings noted on CT with her PCP and request referral to [facility] for follow up on probable endometrial stripe thickening, presumed uterine fibroids, and cervical enlargement. Radiology recommends a pelvic ultrasound. Home Meds and New Rx's Prescriptions: New acetaminophen [Mapap Extra Strength] 500 mg Tablet 1,000 mg PO Q8H Qty: 0 RF: 0 docusate sodium [Colace] 100 mg Capsule 100 mg PO TID PRN PRNQty: 0 RF: 0 lidocaine [Lidoderm] 5 % Adhesive Patch,Medicated 1 patch topical Q24H Qty: 15 RF: 0 oxycodone 10 mg Tablet 10 mg PO Q6H PRN PRNQty: 16 RF: 0 Continued magnesium 250 mg Tablet 250 mg PO DAILY RF: 0 cholecalciferol (vitamin D3) [Vitamin D3] 2,000 unit Tablet 2,000 unit PO DAILY RF: 0 Xarelto 20 mg Tablet 20 mg PO DAILY RF: 0 [id number] 50 mcg-75 mcg -100 mg Capsule 1 cap PO DAILY RF: 0 Discharge Instructions Instructions: Vertebral Compression Fracture (DC) Additional Instructions: Take Tylenol 1000 mg every 8 hours scheduled for now. Take Oxycodone every 6-8 hours NEEDED for pain. Use the lidoderm patches if they help with the pain. Be sure to take bowel medications to avoid constipation/obstruction. Your CT scan showed incidental findings of probable thickening of your endometrial strip, uterine fibroids and cervical enlargement. Discuss this with your PCP. Follow up with gynecology. A pelvic ultrasound is recommended. Use incentive spirometer to help keep your lungs healthy. Take care! Stand Alone Forms: Nursing Discharge Form Referrals: Jen [Other] - 11/01/19 3:45 pm (Please call the office when you get home) Activity:: Activity as Tolerated Equipment/Supplies:: Walker Diet:: As Tolerated Discharge Orders Discharge Orders: Discharge Order (Routine); Ordered 10/27/19 Ordered By: Unique Alcazar DS: Summary Status at Discharge Functional status at discharge: uses cane/walker Overall status at discharge: patient is not back to baseline Mental Status: mental status grossly normal Speech and Movement: other (Speech clear. activity limited by t-7 compression fracture. ) Mood: congruent mood Affect: normal affect Exam Narrative Exam Narrative: General: 54 year old female, appears stated age, alert and oriented. Sitting up in the chair, appears uncomfortable with position changes. HEENT: normocephalic, atraumatic, pupils equal and round, EOMI, mucous membranes moist. Neck: supple, no JVD. Cardiovascular: heart has regular rate and rhythm. No murmur appreciated. Nontachycardic. Respiratory: respirations even and unlabored, lung sounds clear throughout. GI: abdomen soft, nontender on palpation, normoactive bowel sounds, nondistended. Extremities: no clubbing, cyanosis or edema. No calf swelling or tenderness. Back: Tenderness noted on palpation along T-spine, no ecchymosis or edema. Psych Mental Status: mental status grossly normal Speech and Movement: other (Speech clear. activity limited by t-7 compression fracture. ) Mood: congruent mood Affect: normal affect DS: Data Vitals/I&O Vitals and I&O: Vital Signs Temperature 37.1 C 10/27/19 07:20 Temperature Source Tympanic 10/27/19 07:20 Pulse 71 10/27/19 07:20 Pulse Rhythm Regular 10/27/19 08:35 Respiratory Rate 20 10/27/19 07:20 Respiratory Effort Non-Labored 10/27/19 08:35 Respiratory Depth Normal 10/27/19 08:35 Respiratory Pattern Normal 10/27/19 08:35 Blood Pressure 149/70 H 10/27/19 07:20 Blood Pressure Position Sitting 10/25/19 10:30 Pulse Oximetry 98 10/27/19 09:30 Oxygen Delivery Method Room Air 10/27/19 09:30 Oxygen Flow Rate 0 10/27/19 09:30 Pain Level 3 10/27/19 08:17 Intake & Output 10/26/19 10/26/19 10/27/19 11:59 23:59 11:59 Intake Total 480 / 480 400 / 400 Output Total 1900 / 3700 1800 / 3700 1450 / 1450 Balance -1900 / -3220 -1320 / -3220 -1050 / -1050 Weight 56.8 kg 56.9 kg Intake: Oral 480 / 480 400 / 400 Output: Urine 1900 / 3700 1800 / 3700 1450 / 1450 Other: Urine Color Yellow Yellow Yellow Light [place] Urine Appearance Clear Clear Clear Urine Odor None Normal Normal Voiding Methods Toilet Toilet Toilet Data Completed and Pending Completed studies during hospitalization [Text1]: 10/25/19: EXAM: CT CHEST/ABD/PEL W AND CT THORACIC AND LUMBAR RECONS CLINICAL HISTORY: fall, anticoagulated TECHNIQUE: CT examination of the chest, abdomen and pelvis was performed with a bolus infusion of 100 cc of Omnipaque 350. Thoracic and lumbar spine reconstructions were obtained from the raw data set. COMPARISON: No exams were available for comparison FINDINGS: There is minimal anterior vertebral body compression fracture and superior endplate fracture of T7. No involvement of the posterior elements. This reportedly corresponds to the patient's area of symptomatology. Note is also made of questionable poorly defined areas of decreased attenuation in multiple lumbar vertebral bodies, no definite lytic lesion seen but possibility of early lytic lesions is not excluded and correlation with MR of the lumbar and thoracic spine is suggested including post contrast imaging to rule out multifocal process such as multiple myeloma. The lungs are clear. The thoracic aorta and major branches appear intact. No evidence of pulmonary embolic disease. No mediastinal or hilar adenopathy. Tracheobronchial tree appears intact. No pleural effusion or pneumothorax. No soft tissue hematoma. Liver, spleen and pancreas appear normal. Gallbladder and bile ducts are CT normal. Adrenals and kidneys appear normal. Abdominal aorta and major branches appear normal. No intra-abdominal hematoma or free air. Small fat containing umbilical hernia noted. No abdominal or pelvic adenopathy. Appendix is normal. No evidence of bowel injury, diverticulitis or bowel obstruction. Uterus appears mildly enlarged with some myometrial calcifications and heterogeneous appearance of the uterus consistent with multiple fibroids. No gross adnexal mass. There is prominence of the endometrial stripe which is abnormal in this age group, question cervical enlargement noted as well. Pelvic ultrasound requested for correlation to evaluate the cervix to exclude cervical mass lesion and to evaluate the endometrial stripe. IMPRESSION: Mild anterior T7 vertebral body/superior endplate fracture. Questionable areas of decreased attenuation particularly in lumbar spine raising the possibility of lytic lesions. Thoracic and lumbar spine MRI including post contrast imaging suggested to rule out multifocal disease including multiple myeloma. Probable endometrial stripe thickening in a postmenopausal patient. Presumed uterine fibroids, cervical enlargement noted. Pelvic ultrasound suggested for correlation. EXAM: MR THORACIC SPINE WO/W CLINICAL HISTORY: concern for lytic lesions. TECHNIQUE: Multiplanar multisequence MRI was performed. COMPARISON: MR LUMBAR SPINE WO/W from 10/25/2019 FINDINGS: MR examination of thoracic spine was performed utilizing multiplanar imaging including pre and post contrast T1 fat sat imaging. Spinal cord shows normal signal. No bony spinal canal abnormality. Neural foramina appear intact as visualized. Mildly increased signal noted on stir images of the superior endplate of T7 vertebral body consistent with the minimal acute compression fracture identified by CT. No associated cord injury. No additional fracture seen. No enhancing lesion. No space-occupying lesion and nothing to suggest the presence of multiple myeloma. Impressions section superior endplate compression fracture of T7. No additional findings. No marrow lesion identified. Scanning of the lumbar spine was performed according to the usual protocol with additional post contrast T1 weighted fat sat imaging. There are multiple small high-signal foci seen on precontrast T1 and T2 weighted images consistent with multiple vertebral fatty rests or hemangiomas. Minimal Alva discal signal changes seen at its anterior superior endplate of L3 with minimal enhancement, the findings are also associated with mildly abnormal signal of inferior anterior endplate of L2 and the findings are consistent with disc degeneration. No other enhancing lesion identified in the lumbar region. No bony central canal spinal stenosis, neural foraminal stenosis, or disc herniation. Neural foramina appear well maintained throughout. Normal appearance of the conus medullaris. IMPRESSION: Minimal superior endplate/anterior compression of L7 vertebral body No other significant findings in the thoracic spine Multiple small fatty rests and/or vertebral hemangiomas of the lumbar spine which probably correspond with multiple areas of low attenuation seen on CT. No specific evidence of multiple myeloma or other space-occupying lesion. Findings consistent with disc degeneration with endplate changes at L2-3. No lumbar disc herniation, central canal spinal stenosis, or neural foraminal stenosis. [facility] Medical History Antiphospholipid antibody syndrome (Chronic) History of DVT (deep vein thrombosis) (Resolved) Small bowel obstruction due to adhesions (Resolved) Uterine fibroid (Acute) Surgical History H/O section (Chronic) Social History Smoking/Tobacco Use Status: Former Tobacco Use Alcohol Intake: current Alcohol Intake frequency: holidays/special occasions only Drug use: Never Substance use type: does not use Do you feel safe at home: Yes Do you feel safe in your relationship?: Yes
[2019-10-27] MEDS: Lidocaine 5% Patch 1 PATCH TP (12:17)
--- NOTE | 2019-10-27 14:12 | PDOC.CMDIS ---
LACE Index Scoring Tool - Questions: Length of Stay (in days): 2 Acuity (Admit via E.D.?): Yes E.D. Visits: 1 - Answers: Total Score: 6 Risk of Readmission: Low Risk Care Management Discharge Reason for Hospitalization: T7 Compression Fracture, s/p fall Discharge Plan: Nakia will discharge back home to [place] and follow up with her local providers, she will transport via private vehicle with her . Patient/Family Education Needs: Review discharge instructions, discuss Ask Me Three. Services Needed at Discharge: [facility] Facility ([facility] return), Transportation ([facility])
--- NOTE | 2019-10-28 11:39 | PT.INDS ---
Date of service: 10/28/19 Time of Service: 11:40 PT Notes Visit Reasons: T7 COMPRESSIONFX, SP FALL Inpatient Physical Therapy Discharge Summary Dates: 10/27/2018 Dates of Service: 10/26/2019 and 10/27 2019 Referring Doctor: Unique Alcazar NP PT Orders: PT CONSULT: Non-urgent, compression fx T7, S/P fall Precautions: Standard. Patient Profile/Admitting Diagnosis: Patient fell down a flight of stairs morning of 10/25/19, sustaining T7 compression fracture. Admitted for pain management, until she is able tolerate travel home to [place]. PMHX: Medical History (Updated 10/25/19 @ 17:10 by Unique Alcazar NP) Antiphospholipid antibody syndrome (Chronic) History of DVT (deep vein thrombosis) (Resolved) Small bowel obstruction due to adhesions (Resolved) Uterine fibroid (Acute) Surgical History (Updated 10/25/19 @ 17:01 by Unique Alcazar NP) H/O section (Chronic) Social History/Home Situation: Resides in [place], works for an [employer]. She is with 3 supportive college aged children. She lives in a split level ranch home, 5 stairs to enter home, 5 stairs then to get to the main level, and a flight of stairs to get to the second level master bedroom and bathroom. She does have a bathroom on the main floor, and could arrange sleeping quarters on the main level if needed. She has a bed that has mechanical head elevation if needed in master. Current Functional Limitations: Requires walker for ambulation, and CG for transfers. Poor tolerance to sitting. I with toileting. Very slow overall do to pain level. Equipment Owned/DME: None Subjective: Patient continues to complain of pain on her back at 5-6/10 aggravated with ambulation activity. She does look forward to driving back home to [place] with today. Objective: General Observation: Patient continues to appear anxious about her pain level Mental Status: A&Ox3 Pain: 5-6/10 after ambulation activity ROM: Right Upper Extremity: WNL Left Upper Extremity: WNL Right Lower Extremity: Grossly WNL, but deferred assessment of full hip flexion and rotation due to pain induced on sacrum Left Lower Extremity: Grossly WNL, but deferred assessment of full hip flexion and rotation due to pain induced on sacrum Strength: Upper Extremities: Grossly 3/5 Lower Extremities: Grossly 3/5 Sensation: Intact Bed Mobility/Transfers: CG with bed mobility, transfers on/off EOB and toilet, RW throughout. Gait: 200 ft, RW, SBA. Tolerated up and down six 4-inch steps and four 6-inch steps with one hand holding onto the left rail going up (right rail going down) and right hand with cane going up ( left hand with cane going down) using step to gait pattern with SBA. Assessment: Patient is a 54 year old female referred to physical therapy services with the diagnosis of S/P fall on 10/25/19, resulting in T8 compression fracture. Patient presents with clinical signs and symptoms consistent with T7 fracture, and sacrum contusion, as demonstrated by the following impairment level findings: Limited LE mobility, generalized weakness, poor balance, gait antalgia and motor control and movement dysfunction. Impairments are contributing to the following functional limitations: Poor tolerance to and difficulty with bed mobility, transfers, dependent on walker for ambulation, very slow movement compared to her baseline and AMPAC score or 46% disability. She requires skilled PT intervention to attend to above impairments and functional limitations. She is pain dominant due to acute injury, and at this point generous time is needed to allow for pain management, and improved tolerance to functional tasks. She will require a walker to allow for safe functional ambulations, and toilet riser to allow for pain reduction and safer toilet transfers. Goals: Goals X1 week 1. Supine-Sit I, pain level 5/10 MET 2. Sit-Supine I, pain level 5/10 MET 3. Sit-Stand I, pain level 5/10 NOT MET 4. Stand-Sit I, pain level 5/10 NOT MET 5. Bed-Chair I, pain level 5/10 NOT MET 6. Chair-Bed I, pain level 5/10 NOT MET 7. Gait FWW, distant supervision 100 ft. Stairs distant supervision 6 x 5, with rail MET DISCHARGE RECOMMENDATIONS: Home with , when pain is manageable to tolerate travel home. Expect by tomorrow she will be able to tolerate travel. AD recommendations as above. TREATMENT CODE/TIME: 76195 x 24 minutes beginning at 10:38 AM. Thank you very much for this referral. Hortencia Reinoso PT, DPT, CLT [facility] Inpatient PT at [facility]
== END 2019-10-27 13:40 | disposition home or self-care (01) ==
LOC: ER 16:16 → MS 16:42
PROVIDERS: Nurse Practitioner; Admitting Provider Internal Medicine; Emergency Provider Physician Assistant; Visit Provider Internal Medicine
DX: S22.060A Wedge compression fracture of T7-T8 vertebra, initial encounter for closed fracture (principal); W10.9XXA Fall (on) (from) unspecified stairs and steps, initial encounter; D68.61 Antiphospholipid syndrome; Z78.0 Asymptomatic menopausal state; R93.89 Abnormal findings on diagnostic imaging of other specified body structures; N88.8 Other specified noninflammatory disorders of cervix uteri; D25.9 Leiomyoma of uterus, unspecified; D18.09 Hemangioma of other sites; Z86.718 Personal history of other venous thrombosis and embolism
CPT/HCPCS: 36415; 72158; 74177; 80053; 96374; 96375; 96376; 97161; 97530; 99219; 99225; 99239; 99285; 71260; 72157; 85025; 85610; 85730; 99217; G0378; J2060; J2270; J3010; J3490